=== PATIENT | female | born 1975 | race Caucasian/White ===

== ENCOUNTER → 2017-03-15 | Outpatient (CLI) | payer OTHER ==
[~2017-03-15] MED LIST: AMITRIPTYLINE25 MG PO; CITALOPRAM20 MG PO; FLEXERIL5 MG PO; LEVOTHYROXIN0.075 MG PO; LEVOTHYROXINE0.15 MG PO; MEDROL DOSEPAK4 MG PO; MOTRIN800 MG PO; NORCO 5-325 TA1 EACH PO; NORFLEX100 MG PO; PERCOCET 325 MG1 TA2 PO; PERCOCET 325 MG1 TA6 PO; VICODIN 5/500 505 MG PO; VICODIN ES 7501 TAB PO
[2017-03-15 10:48] LABS: BASO % 0.5 % (0.0-1.0); EOS # 0.2 10*3/uL (0.0-0.4); EOS % 2.6 % (1.0-4.0); HEMATOCRIT 39.1 % (37.0-47.0); HEMOGLOBIN 12.8 g/dl (12.0-16.0); LYMPH # 2.5 10*3/uL (1.3-4.4); LYMPH % 31.5 % (27.0-41.0); MEAN CELL VOLUME 96.8 fl (81.0-99.0); MEAN CORPUSCULAR HGB 31.7 pg (27.0-31.0); MEAN CORPUSCULAR HGB CONC 32.7 g/dl (33.0-37.0); MONO # 0.3 10*3/uL (0.1-1.0); MONO % 4.4 % (3.0-9.0); NEUT # 4.7 10*3/uL (2.3-7.9); NEUT % 60.6 % (47.0-73.0); PLATELET COUNT AUTOMATED 235 10*3/uL (130-400); RED BLOOD COUNT 4.04 10*6/uL (4.10-5.10); RED CELL DISTRI WIDTH 12.8 % (0-14.5); WHITE BLOOD COUNT 7.8 10*3/uL (4.8-10.8)
[2017-03-15 11:19] LABS: ALKALINE PHOSPHATASE 212 U/L (45-117); BILIRUBIN, TOTAL 0.4 mg/dl (0.2-1.0); BUN 8 mg/dl (7-24); CARBON DIOXIDE 30 mmol/L (21-32); CHLORIDE 104 mmol/L (98-107); CHOLESTEROL 129 mg/dL (<200); EST GLOM FILT AFRICAN AMERICAN > 60 ml/min; FREE T4 0.96 ng/dl (0.76-1.46); GLUCOSE 88 mg/dL (65-99); HDL CHOLESTEROL 35 mg/dl (40-60); LDL CHOLESTEROL 46 mg/dL (9-159); POTASSIUM 4.2 mmol/L (3.5-5.1); SGOT/AST 50 IU/L (3-35); SGPT/ALT 96 U/L (12-78); SODIUM 142 mmol/L (136-145); TRIGLYCERIDES 241 mg/dl (<150); VLDL CHOLESTEROL 48 mg/dL (6-40)
== END | disposition home or self-care (01) ==
LOC: LAB 10:29
PROVIDERS: Physician Assistant Medical
DX: E03.9 Hypothyroidism, unspecified (principal)

== ENCOUNTER 2017-05-04 15:55 | Emergency (ER) | payer OTHER ==
[~2017-05-04] VITALS: Ht 167.6 cm; Wt 83.9 kg
[2017-05-04] MEDS ORDERED: ADDERALL 20 MG20 MG PO (16:19)
[2017-05-04] MEDS ORDERED: TRAMADOL HCL50 MG PO (16:30)
[2017-05-04] MEDS ORDERED: NEURONTIN400 MG PO (16:32)
[2017-05-04] MEDS ORDERED: TRAZODONE100 MG PO (16:32)
[2017-05-04] MEDS ORDERED: ROPINIROLE HYDRO1 MG PO (16:33)
[2017-05-04 16:46] LABS: BASO % 0.4 % (0.0-1.0); EOS # 0.1 10*3/uL (0.0-0.4); EOS % 0.7 % (1.0-4.0); HEMATOCRIT 43.5 % (37.0-47.0); HEMOGLOBIN 14.6 g/dl (12.0-16.0); LYMPH # 1.8 10*3/uL (1.3-4.4); LYMPH % 25.3 % (27.0-41.0); MEAN CELL VOLUME 95.2 fl (81.0-99.0); MEAN CORPUSCULAR HGB 31.9 pg (27.0-31.0); MEAN CORPUSCULAR HGB CONC 33.6 g/dl (33.0-37.0); MEAN PLATELET VOLUME 10.4 fl (9.6-12.3); MONO # 0.3 10*3/uL (0.1-1.0); MONO % 4.3 % (3.0-9.0); NEUT # 4.8 10*3/uL (2.3-7.9); PLATELET COUNT AUTOMATED 241 10*3/uL (130-400); RED BLOOD COUNT 4.57 10*6/uL (4.10-5.10); RED CELL DISTRI WIDTH 12.5 % (0-14.5)
[2017-05-04 17:15] LABS: ALBUMIN 3.8 gm/dl (3.1-4.5); ALKALINE PHOSPHATASE 155 U/L (45-117); BILIRUBIN, TOTAL 0.4 mg/dl (0.2-1.0); BUN 20 mg/dl (7-24); CARBON DIOXIDE 25 mmol/L (21-32); CHLORIDE 103 mmol/L (98-107); EST GLOM FILT AFRICAN AMERICAN > 60 ml/min; GLUCOSE 88 mg/dL (65-99); MAGNESIUM 2.1 mg/dL (1.5-2.1); POTASSIUM 4.2 mmol/L (3.5-5.1); SGOT/AST 32 IU/L (3-35); SGPT/ALT 72 U/L (12-78); SODIUM 137 mmol/L (136-145); TOTAL PROTEIN 7.3 gm/dL (6.4-8.2)
[2017-05-04 17:16] LABS: TROPONIN I < 0.015 ng/ml (<0.045)
[2017-05-04 17:48] LABS: BILIRUBIN NEGATIVE (NEGATIVE); BLOOD NEGATIVE (NEGATIVE); CLARITY CLEAR (CLEAR); COLOR YELLOW (YELLOW); GLUCOSE NEGATIVE (NEGATIVE); KETONE NEGATIVE (NEGATIVE); LEUKO ESTERASE NEGATIVE (NEGATIVE); NITRITE NEGATIVE (NEGATIVE); PH 5.5 (5.0-9.0); PROTEIN NEGATIVE (NEGATIVE); SPECIFIC GRAVITY >= 1.030 (1.005-1.030); UROBILINOGEN 0.2 E.U./dl (0.2-1.0)
[2017-05-04 17:57] LABS: BACTERIA TRACE; EPITHELIAL CELLS 0-3; RBC 0-2 rbc/hpf (0-2); URINE REFLEX COMMENT NO (NO)
[2017-05-04 17:58] LABS: URINE AMPHETAMINES < 1000 (1000ng/ml); URINE BARBITURATES < 200 (200ng/ml); URINE COCAINE < 300 (300ng/ml)
[2017-05-04 19:22] VITALS: BP 118/51
== END 2017-05-04 21:52 | disposition short-term general hospital (02) ==
LOC: ED 15:55
PROVIDERS: Emergency Medicine
DX: I63.9 Cerebral infarction, unspecified (principal); G40.909 Epilepsy, unspecified, not intractable, without status epilepticus

== ENCOUNTER → 2019-05-12 | Outpatient (CLI) | payer OTHER ==
[~2019-05-12] MED LIST changes: +ADDERALL 20 MG20 MG PO; +NEURONTIN400 MG PO; +ROPINIROLE HYDRO1 MG PO; +TRAMADOL HCL50 MG PO; +TRAZODONE100 MG PO
== END | disposition home or self-care (01) ==
LOC: LAB 14:27
DX: Z80.3 Family history of malignant neoplasm of breast (principal)

== ENCOUNTER → 2019-07-02 | Outpatient (CLI) | payer OTHER | END | disposition home or self-care (01) | LOC: RESCLI 00:22 | DX: N30.10 Interstitial cystitis (chronic) without hematuria (principal); E03.9 Hypothyroidism, unspecified; F90.9 Attention-deficit hyperactivity disorder, unspecified type; Z79.899 Other long term (current) drug therapy ==

== ENCOUNTER → 2019-10-13 | Outpatient (CLI) | payer OTHER | END | disposition home or self-care (01) | LOC: RESCLI 00:36 | DX: F90.9 Attention-deficit hyperactivity disorder, unspecified type (principal); N30.10 Interstitial cystitis (chronic) without hematuria; E03.9 Hypothyroidism, unspecified; G25.81 Restless legs syndrome; G47.00 Insomnia, unspecified; Z90.49 Acquired absence of other specified parts of digestive tract; Z79.899 Other long term (current) drug therapy ==

== ENCOUNTER → 2019-10-15 | Outpatient (CLI) | payer OTHER | END | disposition home or self-care (01) | LOC: MRI 10-14 14:00 | DX: S92.002A Unspecified fracture of left calcaneus, initial encounter for closed fracture (principal); M65.872 Other synovitis and tenosynovitis, left ankle and foot; X58.XXXA Exposure to other specified factors, initial encounter; Y93.89 Activity, other specified; Y92.89 Other specified places as the place of occurrence of the external cause; Y99.8 Other external cause status ==

== ENCOUNTER → 2020-03-03 | Outpatient (CLI) | payer OTHER | END | disposition home or self-care (01) | LOC: RESCLI 04:17 | DX: N30.10 Interstitial cystitis (chronic) without hematuria (principal); N32.81 Overactive bladder; E03.9 Hypothyroidism, unspecified; F90.9 Attention-deficit hyperactivity disorder, unspecified type; Z90.49 Acquired absence of other specified parts of digestive tract; Z98.890 Other specified postprocedural states; Z79.899 Other long term (current) drug therapy ==

== ENCOUNTER 2020-07-07 07:26 | Observation (INO) | payer OTHER ==
[~2020-07-07] VITALS: Ht 165.1 cm; Wt 124.0 kg
[2020-07-07 07:32] VITALS: BP 149/72
[2020-07-07 08:10] LABS: BASO % 0.3 % (0.0-1.0); EOS # 0.3 10*3/uL (0.0-0.4); EOS % 2.9 % (1.0-4.0); HEMATOCRIT 43.4 % (37.0-47.0); LYMPH # 2.1 10*3/uL (1.3-4.4); LYMPH % 20.5 % (27.0-41.0); MEAN CELL VOLUME 94.8 fl (81.0-99.0); MEAN CORPUSCULAR HGB 30.8 pg (27.0-31.0); MEAN CORPUSCULAR HGB CONC 32.5 g/dl (33.0-37.0); MEAN PLATELET VOLUME 10.5 fl (9.6-12.3); MONO # 0.5 10*3/uL (0.1-1.0); MONO % 4.9 % (3.0-9.0); NEUT # 7.2 10*3/uL (2.3-7.9); PLATELET COUNT AUTOMATED 241 10*3/uL (130-400); RED BLOOD COUNT 4.58 10*6/uL (4.10-5.10); RED CELL DISTRI WIDTH 12.7 % (0-14.5); WHITE BLOOD COUNT 10.2 10*3/uL (4.8-10.8)
[2020-07-07 08:21] LABS: ACT PARTIAL THROMBO TIME 25.7 SECONDS (20.0-32.1); INTERNATIONAL NORM RATIO 0.9 (2.0-3.5)
[2020-07-07 08:26] LABS: ALBUMIN 3.3 gm/dl (3.1-4.5); ALKALINE PHOSPHATASE 144 U/L (45-117); BUN 17 mg/dl (7-24); CHLORIDE 110 mmol/L (98-107); CREATININE 0.93 mg/dL (0.55-1.02); POTASSIUM 4.2 mmol/L (3.5-5.1); SGOT/AST 26 IU/L (3-35); SGPT/ALT 83 U/L (12-78); SODIUM 140 mmol/L (136-145); TOTAL PROTEIN 7.1 gm/dL (6.4-8.2)
[2020-07-07 08:27] LABS: TROPONIN I < 0.015 ng/ml (<0.045)
[2020-07-07 09:00] VITALS: BP 148/60
[2020-07-07 12:44] VITALS: BP 150/62
--- NOTE | 2020-07-07 13:00 | NUR ---
A 45, admitted to , under the services of KANE Whitfield DO with a diagnosis of CHEST PAIN. Chief complaint is CHEST PAIN . Patient arrived via stretcher from ER. Monitor applied. Initial assessment completed. Vital signs taken and recorded. KANE WHITFIELD DO notified of admission to the unit. Orders received. See assessment for past medical history, medications and allergies. Patient and/or family oriented to unit. [address] visitation policy reviewed. Clothing/patient valuable form completed. CUAUHTEMOC MAE
[2020-07-07] MEDS ORDERED: TROSPIUM CHLORI20 M1 PO (13:31)
[2020-07-07] MEDS ORDERED: TIZANIDINE2 MG PO (13:31)
[2020-07-07] MEDS ORDERED: CELEBREX100 MG PO (13:31)
--- NOTE | 2020-07-07 15:03 | NUR ---
MEDICATED WITH PRN NORCO PER ORDER AND REQUEST.
[2020-07-07 16:00] VITALS: BP 150/58
--- NOTE | 2020-07-07 19:10 | NUR ---
REPORT RECEIVED. PT WATCHING TV AT THIS TIME. PT VOICES NO COMPLAINTS. CALL LIGHT IN REACH
[2020-07-07 20:00] VITALS: BP 148/52
--- NOTE | 2020-07-07 20:45 | NUR ---
24 HR chart check completed.
--- NOTE | 2020-07-07 21:26 | NUR ---
NORCO GIVEN PER ORDER FOR COMPLAINTS OF 7/10 CHEST PAIN
--- NOTE | 2020-07-07 22:20 | NUR ---
NORCO APPEARS EFFECTIVE. PT ASLEEP AT THIS TIME.
[2020-07-08] VITALS: BP 108/42
--- NOTE | 2020-07-08 01:00 | NUR ---
PT ASLEEP AT THIS TIME.
--- NOTE | 2020-07-08 05:11 | NUR ---
PT MEDICATED WITH NORCO PER ORDER FOR COMPLAINTS OF 7/10 CHEST PAIN/BACK PAIN. WILL MONITOR. PT BP 112/60
[2020-07-08 05:57] LABS: BASO % 0.3 % (0.0-1.0); EOS # 0.5 10*3/uL (0.0-0.4); EOS % 5.1 % (1.0-4.0); HEMATOCRIT 40.6 % (37.0-47.0); LYMPH # 1.6 10*3/uL (1.3-4.4); LYMPH % 16.6 % (27.0-41.0); MEAN CELL VOLUME 95.5 fl (81.0-99.0); MEAN CORPUSCULAR HGB 30.6 pg (27.0-31.0); MEAN PLATELET VOLUME 10.6 fl (9.6-12.3); MONO # 0.6 10*3/uL (0.1-1.0); MONO % 6.1 % (3.0-9.0); NEUT # 6.8 10*3/uL (2.3-7.9); NEUT % 71.6 % (47.0-73.0); PLATELET COUNT AUTOMATED 217 10*3/uL (130-400); RED BLOOD COUNT 4.25 10*6/uL (4.10-5.10); RED CELL DISTRI WIDTH 12.9 % (0-14.5); WHITE BLOOD COUNT 9.5 10*3/uL (4.8-10.8)
[2020-07-08 06:29] LABS: ALBUMIN 2.9 gm/dl (3.1-4.5); ALKALINE PHOSPHATASE 133 U/L (45-117); BUN 16 mg/dl (7-24); CHLORIDE 111 mmol/L (98-107); CHOLESTEROL 148 mg/dL (<200); CREATININE 0.85 mg/dL (0.55-1.02); FREE T4 1.05 ng/dl (0.76-1.46); HDL CHOLESTEROL 40 mg/dl (40-60); LDL CHOLESTEROL 81 mg/dL (9-159); POTASSIUM 4.3 mmol/L (3.5-5.1); SGOT/AST 22 IU/L (3-35); SGPT/ALT 61 U/L (12-78); SODIUM 140 mmol/L (136-145); TOTAL PROTEIN 6.3 gm/dL (6.4-8.2); TRIGLYCERIDES 137 mg/dl (<150); VLDL CHOLESTEROL 27 mg/dL (6-40)
[2020-07-08 06:30] LABS: ACT PARTIAL THROMBO TIME 26.7 SECONDS (20.0-32.1); INTERNATIONAL NORM RATIO 0.9 (2.0-3.5)
[2020-07-08 06:57] LABS: VITAMIN D, 25-HYDROXY 40.2 ng/mL (30-100)
[2020-07-08 08:00] VITALS: BP 110/62; BP 110/68
--- NOTE | 2020-07-08 08:00 | NUR ---
[employer] Work[employer] in to talk to patient. Patient states lives at home with her family. There are basement steps in the home. Physician: Dr. Christnia Talbot Pharmacy: [facility] Home health services: none Patient's level of ADLs: INDEPENDENT Patient has working utilities: yes DME: none Follow-up physician's appointment after d/c: will be made by the hospitalist nurse director upon discharge Does patient want to access PORTAL?: no Discharge plan discussed with patient. She lives at home with her family. She states she is independent in her ADLs and ambulation. Discussed home health care services and she declines. CM will continue to follow for any discharge planning needs. When medically stable she will be discharged to home. She states her fiance will provide transportation on discharge. YANY LONGORIA
--- NOTE | 2020-07-08 09:48 | NUR ---
Medicated with norco per prn order for complaints of pain to left posterior side. States pain 5.
[2020-07-08] MEDS ORDERED: NORCO 5-325 TA1 EACH PO (11:16)
--- NOTE | 2020-07-08 11:55 | NUR ---
Discharge instructions reviewed with patient/family. Patient receptive and verbalizes understanding. Follow-up care arranged. Written instructions given to patient/family. Iv removed and monitor dc. Pt declined assistance out states she will walk out. RAFAEL ALLEN
--- NOTE | 2020-07-08 12:15 | NUR ---
Pt dc in care of self with belongings.
== END 2020-07-08 12:15 | disposition home or self-care (01) ==
LOC: ED 07:26 → 4E 11:18 → EDHOLD 11:18 → 4E 11:49
PROVIDERS: Hospitalist; Internal Medicine; ADMIT Student in an Organized Health Care Education/Training Program; ATTEND Student in an Organized Health Care Education/Training Program
DX: R07.89 Other chest pain (principal); R74.01 Elevation of levels of liver transaminase levels; E03.9 Hypothyroidism, unspecified; G25.81 Restless legs syndrome; M19.90 Unspecified osteoarthritis, unspecified site; R73.9 Hyperglycemia, unspecified; G47.00 Insomnia, unspecified; N32.81 Overactive bladder; E66.01 Morbid (severe) obesity due to excess calories; Z68.42 Body mass index [BMI] 45.0-49.9, adult

== ENCOUNTER 2020-07-08 23:28 | Emergency (ER) | payer OTHER ==
[~2020-07-08] VITALS: Ht 165.1 cm; Wt 124.7 kg
[~2020-07-08 23:28] MED LIST changes: +CELEBREX100 MG PO; +TIZANIDINE2 MG PO; +TROSPIUM CHLORI20 M1 PO
[2020-07-09 00:05] LABS: BASO % 0.3 % (0.0-1.0); EOS # 0.4 10*3/uL (0.0-0.4); EOS % 3.5 % (1.0-4.0); HEMATOCRIT 44.1 % (37.0-47.0); LYMPH % 37.3 % (27.0-41.0); MEAN CELL VOLUME 96.5 fl (81.0-99.0); MEAN CORPUSCULAR HGB 30.6 pg (27.0-31.0); MEAN CORPUSCULAR HGB CONC 31.7 g/dl (33.0-37.0); MEAN PLATELET VOLUME 10.5 fl (9.6-12.3); MONO # 0.7 10*3/uL (0.1-1.0); MONO % 6.3 % (3.0-9.0); NEUT # 5.5 10*3/uL (2.3-7.9); NEUT % 52.1 % (47.0-73.0); RED BLOOD COUNT 4.57 10*6/uL (4.10-5.10); WHITE BLOOD COUNT 10.6 10*3/uL (4.8-10.8)
[2020-07-09 00:07] LABS: PLATELET COUNT AUTOMATED 291 10*3/uL (130-400)
[2020-07-09 00:21] LABS: ALBUMIN 3.4 gm/dl (3.1-4.5); ALKALINE PHOSPHATASE 179 U/L (45-117); BUN 19 mg/dl (7-24); CHLORIDE 108 mmol/L (98-107); CREATININE 0.96 mg/dL (0.55-1.02); LIPASE 74 U/L (73-393); POTASSIUM 3.9 mmol/L (3.5-5.1); SGOT/AST 68 IU/L (3-35); SGPT/ALT 91 U/L (12-78); SODIUM 139 mmol/L (136-145); TOTAL PROTEIN 7.3 gm/dL (6.4-8.2)
[2020-07-09 00:39] LABS: BILIRUBIN Negative (Negative); BLOOD Negative (Negative); CLARITY Cloudy (Clear); COLOR Dark Yellow (Yellow); GLUCOSE Negative (Negative); KETONE Negative (Negative); LEUKO ESTERASE Negative (Negative); NITRITE Negative (Negative); SPECIFIC GRAVITY >= 1.030 (1.001-1.030)
[2020-07-09 00:46] LABS: BACTERIA 1+; RBC 0-2 rbc/hpf (0-2)
[2020-07-09 00:58] VITALS: BP 113/72
== END 2020-07-09 01:38 | disposition home or self-care (01) ==
LOC: ED 23:28
PROVIDERS: Internal Medicine
DX: R14.1 Gas pain (principal); K59.00 Constipation, unspecified; Z79.899 Other long term (current) drug therapy

== ENCOUNTER 2021-01-25 21:18 | Emergency (ER) | payer OTHER ==
[~2021-01-25] VITALS: Ht 165.1 cm; Wt 123.4 kg
[2021-01-25 21:33] VITALS: BP 137/65
[2021-01-26 00:13] LABS: BASO % 0.4 % (0.0-1.0); EOS # 0.1 10*3/uL (0.0-0.4); EOS % 0.8 % (1.0-4.0); HEMATOCRIT 43.3 % (37.0-47.0); LYMPH % 29.8 % (27.0-41.0); MEAN CELL VOLUME 94.3 fl (81.0-99.0); MEAN CORPUSCULAR HGB 31.2 pg (27.0-31.0); MONO # 0.5 10*3/uL (0.1-1.0); MONO % 5.5 % (3.0-9.0); NEUT # 6.3 10*3/uL (2.3-7.9); NEUT % 63.3 % (47.0-73.0); PLATELET COUNT AUTOMATED 314 10*3/uL (130-400); RED BLOOD COUNT 4.59 10*6/uL (4.10-5.10); RED CELL DISTRI WIDTH 12.8 % (0-14.5); WHITE BLOOD COUNT 9.9 10*3/uL (4.8-10.8)
[2021-01-26 00:23] LABS: URIC ACID 3.7 mg/dL (2.6-6.0)
[2021-01-26] MEDS ORDERED: MEDROL DOSEPAK4 MG PO (02:15)
== END 2021-01-26 02:27 | disposition home or self-care (01) ==
LOC: ED 21:18
PROVIDERS: Emergency Medicine
DX: M77.8 Other enthesopathies, not elsewhere classified (principal); M79.671 Pain in right foot; E66.01 Morbid (severe) obesity due to excess calories; G25.81 Restless legs syndrome; G40.909 Epilepsy, unspecified, not intractable, without status epilepticus; M19.90 Unspecified osteoarthritis, unspecified site; Z98.890 Other specified postprocedural states; Z68.42 Body mass index [BMI] 45.0-49.9, adult; Z79.899 Other long term (current) drug therapy

== ENCOUNTER → 2021-11-05 | Day surgery (SDC) | payer OTHER ==
[~2021-11-05] VITALS: Ht 165.1 cm; Wt 126.1 kg
[~2021-11-05] MED LIST changes: -LEVOTHYROXINE0.15 MG PO; +LEVOTHYROXINE175 MCG PO; +PROZAC40 M1 PO; -TRAZODONE100 MG PO; +TRAZODONE150 MG PO; +VITAMIN D350 MCG PO; +WELLBUTRIN SR150 MG PO
[2021-11-05 06:47] VITALS: BP 91/68
[2021-11-05 07:48] VITALS: BP 129/76
[2021-11-05 08:03] VITALS: BP 124/72
[2021-11-05 08:14] VITALS: BP 142/77
== END | disposition home or self-care (01) ==
LOC: SDC 11-01 08:00
PROVIDERS: ATTEND Surgery
DX: Z12.11 Encounter for screening for malignant neoplasm of colon (principal); F41.9 Anxiety disorder, unspecified; Z90.49 Acquired absence of other specified parts of digestive tract; I10 Essential (primary) hypertension; Z98.890 Other specified postprocedural states; G47.00 Insomnia, unspecified; M19.90 Unspecified osteoarthritis, unspecified site; F31.9 Bipolar disorder, unspecified; Z79.899 Other long term (current) drug therapy; Z20.822 Contact with and (suspected) exposure to COVID-19

== ENCOUNTER 2022-01-18 06:51 | Emergency (ER) | payer OTHER ==
[~2022-01-18] VITALS: Ht 165.1 cm; Wt 127.0 kg
[2022-01-18 07:00] VITALS: BP 130/79
[2022-01-18] MEDS ORDERED: DEBROX15 ML OT (07:10)
[2022-01-18] MEDS ORDERED: CLARITIN10 MG PO (07:10)
== END 2022-01-18 07:17 | disposition home or self-care (01) ==
LOC: ED 06:51
DX: H66.92 Otitis media, unspecified, left ear (principal); E03.9 Hypothyroidism, unspecified; M19.90 Unspecified osteoarthritis, unspecified site; E66.01 Morbid (severe) obesity due to excess calories; G40.909 Epilepsy, unspecified, not intractable, without status epilepticus; Z79.899 Other long term (current) drug therapy; Z98.890 Other specified postprocedural states; Z98.51 Tubal ligation status

== ENCOUNTER 2022-02-24 11:59 | Emergency (ER) | payer OTHER ==
[~2022-02-24 11:59] MED LIST changes: +CLARITIN10 MG PO; +DEBROX15 ML OT
[2022-02-24 12:05] VITALS: BP 152/87
== END 2022-02-24 15:47 | disposition home or self-care (01) ==
LOC: ED 11:59
DX: S96.812A Strain of other specified muscles and tendons at ankle and foot level, left foot, initial encounter (principal); Z98.890 Other specified postprocedural states; Z79.899 Other long term (current) drug therapy; W10.8XXA Fall (on) (from) other stairs and steps, initial encounter; Y93.01 Activity, walking, marching and hiking; Y92.89 Other specified places as the place of occurrence of the external cause; Y99.9 Unspecified external cause status

== ENCOUNTER → 2022-03-19 | Outpatient (CLI) | payer OTHER | END | disposition home or self-care (01) | LOC: US 08:30 | PROVIDERS: ATTEND Emergency Medicine | DX: E03.9 Hypothyroidism, unspecified (principal) ==

== ENCOUNTER 2023-02-11 12:00 | Emergency (ER) | payer OTHER ==
[~2023-02-11] VITALS: Wt 124.7 kg
[2023-02-11 12:09] VITALS: BP 182/89
[2023-02-11 13:23] LABS: BILIRUBIN Negative (Negative); BLOOD Negative (Negative); CLARITY Clear (Clear); COLOR Yellow (Yellow); GLUCOSE Negative (Negative); KETONE Negative (Negative); LEUKO ESTERASE Negative (Negative); NITRITE Negative (Negative); PH 6.5 (4.5-8.0); SPECIFIC GRAVITY 1.015 (1.001-1.030); UROBILINOGEN 0.2 E.U./dl (0.0-1.0)
[2023-02-11 13:58] LABS: BACTERIA 1+; WBC 0-2 wbc/hpf (0-5)
[2023-02-11] MEDS ORDERED: ZANAFLEX4 MG PO (14:12)
[2023-02-11] MEDS ORDERED: NAPROSYN500 MG PO (14:12)
[2023-02-11] MEDS ORDERED: MEDROL DOSEPAK4 MG PO (14:12)
== END 2023-02-11 14:19 | disposition home or self-care (01) ==
LOC: ED 12:00
PROVIDERS: Nurse Practitioner Family
DX: S39.012A Strain of muscle, fascia and tendon of lower back, initial encounter (principal); M79.605 Pain in left leg; F41.9 Anxiety disorder, unspecified; F32.A Depression, unspecified; Z90.49 Acquired absence of other specified parts of digestive tract; Z98.890 Other specified postprocedural states; Z98.51 Tubal ligation status; X50.1XXA Overexertion from prolonged static or awkward postures, initial encounter; Y93.01 Activity, walking, marching and hiking; Y92.89 Other specified places as the place of occurrence of the external cause; Y99.8 Other external cause status

== ENCOUNTER 2023-07-08 22:30 | Emergency (ER) | payer SELFPAY ==
[~2023-07-08] VITALS: Wt 140.7 kg
[~2023-07-08 22:30] MED LIST changes: +NAPROSYN500 MG PO; +ZANAFLEX4 MG PO
== END 2023-07-08 23:00 ==
LOC: ED 22:30
DX: I46.9 Cardiac arrest, cause unspecified (principal); F41.9 Anxiety disorder, unspecified; F32.A Depression, unspecified; Z90.49 Acquired absence of other specified parts of digestive tract; Z98.890 Other specified postprocedural states